=== PATIENT | female | born 1985 ===

== ENCOUNTER 2018-07-29 06:01 | Emergency (ER) | payer SELFPAY ==
[2018-07-29 06:15] VITALS: BMI 23.8
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
[2018-07-29 07:42] LABS: ALB/GLOB RATIO 1.4 (1.1-1.8); ALBUMIN 4.9 g/dL (3.0-4.8); ALT/SGPT 21 U/L (7-56); AST/SGOT 43 U/L (14-36); BLOOD UREA NITROGEN 12 mg/dL (7-21); CALCIUM 9.1 mg/dL (8.4-10.5); GFR NON-AFRICAN AMERICAN > 60
[2018-07-29 07:43] LABS: ACETAMINOPHEN < 10.0 ug/ml (10.0-20.0); BASO # 0.02 K/mm3 (0.0-2.0); BASO % 0.4 % (0.0-3.0); EOS # 0.1 (0.0-0.7); EOS % 2.1 % (1.5-5.0); HEMOGLOBIN 13.7 g/dL (12.0-16.0); LYMPH # 2.1 (1.2-3.4); LYMPH % 39.8 % (22.0-35.0); MEAN CELL VOLUME 92.4 fl (80.0-105.0); MEAN CORPUSCULAR HEMOGLOBIN 31.6 pg (25.0-35.0); MEAN CORPUSCULAR HGB CONC 34.2 g/dl (31.0-37.0); MEAN PLATELET VOLUME 10.6 fl (7.0-11.0); MONO # 0.2 (0.1-0.6); MONO % 3.3 % (1.0-6.0); RBC 4.34 10^6/uL (3.5-6.1); RED CELL DISTRIBUTION WIDTH 12.9 % (11.5-14.5); SALICYLATE < 1 mg/dL (2.0-20.0); WHITE BLOOD COUNT 5.2 10^3/uL (4.5-11.0)
[2018-07-29 07:59] LABS: FREE T4 1.11 ng/dL (0.78-2.19)
[2018-07-29 08:11] VITALS: O2SAT 99
[2018-07-29 08:50] LABS: URINE BILIRUBIN NEGATIVE (NEGATIVE); URINE BLOOD TRACE-LYSED (NEGATIVE); URINE GLUCOSE (UA) NEGATIVE (NEGATIVE); URINE LEUKOCYTE ESTERASE NEGATIVE Leu/uL (NEGATIVE); URINE PROTEIN 30 mg/dL (<30 mg/dL); URINE UROBILINOGEN 0.2 E.U./dL (<1 E.U./dL)
[2018-07-29 09:12] LABS: URINE APPEARANCE CLEAR (CLEAR); URINE COLOR YELLOW (YELLOW)
[2018-07-29 09:14] LABS: URINE BACTERIA NEG /hpf; URINE RBC 0 - 2 /hpf (0-2)
[2018-07-29 10:18] VITALS: BP 119/59; PULSE 87; RESP 19; TEMP 98
--- NOTE | 2018-07-29 14:07 | RAD ---
Date of service: 07/29/2018 HISTORY: Psych screen COMPARISON: None available. TECHNIQUE: 1 view obtained. FINDINGS: LUNGS: No active pulmonary disease. PLEURA: No significant pleural effusion identified, no pneumothorax apparent. CARDIOVASCULAR: No aortic atherosclerotic calcification present. Normal cardiac size. No pulmonary vascular congestion. OSSEOUS STRUCTURES: No significant abnormalities. VISUALIZED UPPER ABDOMEN: Normal. OTHER FINDINGS: None. IMPRESSION: No active disease.
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
--- NOTE | 2018-07-30 07:16 | CARD ---
APPROVED REPORT Date of service: 07/29/2018 EKG Measurement Heart [id number] <Conclusion> Sinus tachycardia Otherwise normal ECG
== END 2018-07-29 10:19 | disposition home or self-care (01) ==
LOC: ED 06:01
DX: S60.222A Contusion of left hand, initial encounter (principal); Y08.89XA Assault by other specified means, initial encounter
CPT/HCPCS: 71045; 73130; 80053; 81001; 81025; 83735; 84439; 84443; 85025; 93005; 99285; G0480